=== PATIENT | female | born 1940 | race Hispanic/Latino ===

== ENCOUNTER → 2020-09-22 | Outpatient (CLI) | payer OTHER, MEDICARE | END | disposition home or self-care (01) | LOC: RAH 10:20 | PROVIDERS: ATTEND Internal Medicine Gastroenterology | DX: R13.12 Dysphagia, oropharyngeal phase (principal); R63.3 Feeding difficulties | CPT/HCPCS: 74230; 92611 ==

== ENCOUNTER → 2021-02-07 | Outpatient (CLI) | payer OTHER, MEDICARE ==
[~2021-02-07] MED LIST: REGADENOSON 0.4 MG/5 ML PF SYG IVP SCH
== END | disposition home or self-care (01) ==
LOC: SHCH 08:39
PROVIDERS: ATTEND Internal Medicine Cardiovascular Disease
DX: I25.9 Chronic ischemic heart disease, unspecified (principal); R94.31 Abnormal electrocardiogram [ECG] [EKG]; I51.0 Cardiac septal defect, acquired
CPT/HCPCS: 78452; 93017; 96374; A9500 ×2; J2785